=== PATIENT | male | born 1975 | race Two or more races ===

== ENCOUNTER 2016-11-19 18:12 | Emergency (ER) | payer SELFPAY ==
[2016-11-19 18:31] VITALS: BP 139/93; BMI 32.6
[2016-11-19 18:32] LABS: BASOPHILS # (AUTO) 0.1 X10^3/uL (0.0-0.1); BASOPHILS % (AUTO) 0.5 % (0.2-1.0); EOSINOPHILS # (AUTO) 0.2 x10^3/uL (0.0-0.2); EOSINOPHILS % (AUTO) 1.4 % (0.9-2.9); HEMATOCRIT 45.3 % (42.0-54.0); HEMOGLOBIN 15.2 g/dL (13.5-18.0); LYMPHOCYTES # (AUTO) 1.4 X10^3/uL (1.3-2.9); LYMPHOCYTES % (AUTO) 12.7 % (21.0-51.0); MEAN CORPUSCULAR HGB CONC 33.6 g/dL (33.0-35.0); MEAN CORPUSCULAR VOLUME 86.3 fL (80.0-100.0); MEAN PLATELET VOLUME 7.7 fL (7.4-11.0); MONOCYTES # (AUTO) 0.6 x10^3/uL (0.3-0.8); MONOCYTES % (AUTO) 5.1 % (0.0-13.0); NEUTROPHILS # (AUTO) 9.1 x10^3/uL (2.2-4.8); NEUTROPHILS % (AUTO) 80.3 % (42.0-75.0); PLATELET COUNT 303 X10^3/uL (150.0-450.0); RED BLOOD COUNT 5.24 X10^6/uL (4.7-6.0); RED CELL DISTRIBUTION WIDTH 13.6 % (11.6-16.5); WHITE BLOOD COUNT 11.4 X10^3/uL (3.6-10.0)
[2016-11-19 18:33] LABS: BILIRUBIN,URINE NEGATIVE (NEGATIVE); BLOOD/HEMOGLOBIN,URINE NEGATIVE (NEGATIVE); GLUCOSE, URINE NEGATIVE (NEGATIVE); KETONES,URINE NEGATIVE (NEGATIVE); LEUKOCYTE ESTERASE ,URINE NEGATIVE (NEGATIVE); NITRITES,URINE NEGATIVE (NEGATIVE); PROTEIN,URINE NEGATIVE (NEGATIVE); UROBILINOGEN,URINE NORMAL (NORMAL)
--- NOTE | 2016-11-19 18:37 | DR.PSYCH ---
HPI - Time Seen Time seen: 18:35 - PCP Primary Care Physician: ABDULKADIR - HPI Comment HPI Comment: HISTORY BELOW. - Complaint Chief Complaint Doctors Comments: HERE MENTAL HEALTH EVALUATION. RELATIVES CONVERN PATIENTS ANGER . OBTAIN PAER FOR MANDITORY EVALUATION. DENIES FEVER. DID MISS HIS MEDICATION FOR 2 DAYS. STARTED TAKING IT AGAIN. DENIES SUICIDAL OR HOMICIDAL IDEATIONS. DENIES HALLUCINATIONS. PATIENT IN HIS ROOM CALM AND ANSWERING QUESTIONS. Chief Complaint:: PT WAS BROUGHT IN BY [facility]S OFFICE ON A [place] TO APPREHEND. PT'S FAMILY WRITES IN THE AFF[place]AVIT PT HAS BEEN BEING EXTREMELY ANGRY AND WAS ACTING SUICIDAL. PT DENIES ACTING SUICIDAL, BUT STATES HE HAS BEEN UNDER ALOT OF STRESS LATELY AND HE HAS BEEN ANGRY. PT DENIES ANY HOMICIDAL OR SUICIDAL THOUGHTS. PT DOES STATES THAT HE HAS HAD SOME PROBLEMS IN THE PAST WITH DEPRESSION AND ANXIETY THAT HE TAKES MEDICATIONS FOR, BUT THESES DAYS HE HAS ALSO BEEN TRYING TO CONTROL HIMSELF AND HIS ACTIONS A LITTLE BETTER. PT STATES HE TAKES SEVERAL DIFFERENT MEDICATIONS THE ONLY ONE HE WAS ABLE TO NAME WAS LITHIUM. - Reviewed Nurses Notes Review: Yes - Source History Provided: Patient - Mode of Arrival Mode of Arrival: Ambulatory - Timing Onset of Chief Complaint: 11/19/16 Came on: Gradually - Duration Duration: Intermittent Duration: Days - Context Presents With: Anxiety, Depression Ideation: None Plan: None Stressors: Family History of: Anxiety, Bipolar, Depression - Quality Quality: None Hallucinations: None - Severity Severity: Able to care for self - Associated signs and symptoms Intoxification: None PMH - PMH Past Medical History: Yes Past Medical History: Anxiety, Depression Past Surgical History: No - Family History History of Family Medical Conditions: No - Social History Does any household member use tobacco: No Alcohol Use: None Do you use any recreational Drugs:: No Lives With: Family Lives Where: Home - infectious screening In the last 2 months have you had wt loss of >10#?: NO Have you had fever, night sweats or hemotysis?: No Have you traveled outside the country in the last 6 months?: No Isolation: Standard ROS - Review of Systems Constitutional: No Symptoms Reported Eyes: No Symptoms Reported ENTM: No Symptoms Reported Respiratoy: No Symptoms Reported Cardiovascular: No Symptoms Reported Gastrointestinal/Abdominal: No Symptoms Reported Genitourinary: No Symptoms Reported Neurological: No Symptoms Reported Musculoskeletal: No Symptoms Reported Integumentary: No Symptoms Reported Hematologic/Lymphatic: No Symptoms Reported Endocrine: No Symptoms Reported Psychiatric: Anxiety, Depression. negative: Hallucinations, Suicidal All Other Systems: Reviewed and Negative PE - Vitals Vitals: Temperature 98.3 F Pulse Rate 82 Respiratory Rate 20 Blood Pressure 139/93 O2 Sat by Pulse Oximetry 99 - General Limitations: No Limitations General Appearance: Alert - Head Head Exam: Normal Inspection Head Exam Physical: Other (NONE PRESENT) - Eyes Eye exam: Normal Appearance Pupils: Regular, Round: Bilateral, Reactive: Bilateral Sclera/Conjunctival: Normal Inspection: Bilateral - ENT ENT Exam: Normal Exam - Neck Neck Exam: Trachea Midline - Chest Chest Inspection: Symmetric Chest Wall Rise - Respiratory Respiratory Exam: Normal Lung Sounds Bilat Respiratory Exam: Bilateral Clear to Auscultation - Cardiovascular Cardiovascular Exam: Regular Rate, Normal Rhythm, Normal Heart Sounds - Abdominal Exam Abdominal Exam: Normal Bowel Sounds, Soft. negative: Tenderness - Extremities Extremities Exam: Normal Inspection - Back Back Exam: Normal Inspection - Neurologic Neurological Exam: Alert, Oriented X3, CN II-XII Intact, Normal Gait, Reflexes Normal. negative: Motor Sensory Deficit Speech: Fluid Speech Cranial Nerve Exam: EOM Function (II, III, IV, ): Normal, Facial Sensation (V) : Normal, Facial Palsy (VII): Normal, Gag reflex (XI): Normal, Tongue Deviation : Normal Cerebellar Function: Normal Gait Motor Strength - LUE: 5/5 Motor Strength - RUE: 5/5 Motor Strength - LLE: 5/5 Motor Strength - RLE: 5/5 Upper Motor Neuron Exam: Babinski Sign: Normal DTR: achilles tendon (L): 4+, achilles tendon (R): 4+, brachioradialis (L): 4+, brachioradialis (R): 4+, Patellar (L): 4+, patellar (R): 4+ - Psychiatric Psychiatric Exam: Anxious - Skin Skin Exam: Normal Color MDD - Differential Diagnosis Differential diagnosis: Anxiety, Bipolar disorder, Depression Course - Treatment Treatment: SEE ORDERS. PATIENT MEDICALLY CLEAR. - Consultation Consultation Comments: MENTAL HEALTH INPATIENT AUDITOR CAME TO ED AND EVALUATED PATIENT. HAVE OUT PATIENT FOLLOW UP ARRANGE. - Education/Counseling Education/Counseling: Patient, Education Educated On: Diagnosis, Needs for Follow Up ROR - Labs Reviewed Laboratory Results Reviewed?: Yes Result Diagrams: 11/19/16 18:23 11/19/16 18:23 Laboratory: WBC 11.4 X10^3/uL (3.6-10.0) H 11/19/16 18:23 RBC 5.24 X10^6/uL (4.7-6.0) 11/19/16 18:23 Hgb 15.2 g/dL (13.5-18.0) 11/19/16 18: Hct 45.3 % (42.0-54.0) 11/19/16 18:23 MCV 86.3 fL (80.0-100.0) 11/19/16 18:23 MCH 29.0 pg (27.0-34.0) 11/19/16 18: MCHC 33.6 g/dL (33.0-35.0) 11/19/16 18: RDW 13.6 % (11.6-16.5) 11/19/16 18: Plt Count 303 X10^3/uL (150.0-450.0) 11/19/16 18: MPV 7.7 fL (7.4-11.0) 11/19/16 18:23 Neut % 80.3 % (42.0-75.0) H 11/19/16 18: Lymph % 12.7 % (21.0-51.0) L 11/19/16 18:23 [place] % 5.1 % (0.0-13.0) 11/19/16 18:23 Eos % 1.4 % (0.9-2.9) 11/19/16 18: Baso % 0.5 % (0.2-1.0) 11/19/16 18:23 Neut # 9.1 x10^3/uL (2.2-4.8) H 11/19/16 18:23 Lymph # 1.4 X10^3/uL (1.3-2.9) 11/19/16 18:23 [place] # 0.6 x10^3/uL (0.3-0.8) 11/19/16 18:23 Eos # 0.2 x10^3/uL (0.0-0.2) 11/19/16 18: Baso # 0.1 X10^3/uL (0.0-0.1) 11/19/16 18:23 Absolute Nucleated RBC 0.0 /100WBC 11/19/16 18:23 Sodium 143 mmol/L (136-145) 11/19/16 18:23 Corrected Sodium TNP 11/19/16 18:23 Potassium 4.0 mmol/L (3.5-5.1) 11/19/16 18:23 Chloride 103 mmol/L (98-107) 11/19/16 18:23 Carbon Dioxide 26.4 mmol/L (21-32) 11/19/16 18:23 BUN 13 mg/dL (7-18) 11/19/16 18:23 Creatinine 1.08 mg/dL (0.70-1.30) 11/19/16 18:23 Est GFR (MDRD) Af Amer > 60 (>60) 11/19/16 18:23 Est GFR (MDRD) Non-Af > 60 (>60) 11/19/16 18:23 Glucose 99 mg/dL (65-99) 11/19/16 18:23 Calcium 9.5 mg/dL (8.5-10.1) 11/19/16 18:23 Corrected Calcium TNP 11/19/16 18:23 Total Bilirubin 1.30 mg/dL (0.2-1.0) H 11/19/16 18:23 AST 28 Units/L (15-37) 11/19/16 18:23 ALT 34 Units/L (12-78) 11/19/16 18:23 Alkaline Phosphatase 74 Units/L (46-116) 11/19/16 18:23 Total Protein 9.0 g/dL (6.4-8.2) H 11/19/16 18:23 Albumin 4.6 g/dL (3.4-5.0) 11/19/16 18:23 Globulin 4.4 g/dL (2.5-4.5) 11/19/16 18:23 Albumin/Globulin Ratio 1.0 Ratio (1.1-2.1) L 11/19/16 18:23 Specimen Type Clean catch urine 11/19/16 18:27 Urine Color Yellow (YELLOW) 11/19/16 18:27 Urine Appearance Clear (CLEAR) 11/19/16 18:27 Urine pH 6.0 (5.0 - 8.0) 11/19/16 18:27 Ur Specific [place] 1.020 (1.000-1.030) 11/19/16 18:27 Urine Protein Negative (NEGATIVE) 11/19/16 18:27 Urine Glucose (UA) Negative (NEGATIVE) 11/19/16 18:27 Urine Ketones Negative (NEGATIVE) 11/19/16 18:27 Urine Occult Blood Negative (NEGATIVE) 11/19/16 18:27 Urine Nitrite Negative (NEGATIVE) 11/19/16 18:27 Urine Bilirubin Negative (NEGATIVE) 11/19/16 18:27 Urine Urobilinogen Normal (NORMAL) 11/19/16 18:27 Ur Leukocyte Esterase Negative (NEGATIVE) 11/19/16 18:27 Urine RBC None seen /HPF (NEGATIVE) 11/19/16 18:27 Urine WBC 0-1 /HPF (NEGATIVE) 11/19/16 18:27 Ur Squamous Epith Cells Rare /HPF (NEGATIVE) 11/19/16 18:27 Amorphous Sediment Trace /HPF (NEGATIVE) 11/19/16 18:27 Urine Bacteria Trace /HPF (NEGATIVE) 11/19/16 18:27 Urine Mucus Moderate /HPF (NEGATIVE) 11/19/16 18:27 Ur Culture Indicated? No/not indicated 11/19/16 18:27 Salicylates < 2.8 mg/dL (2.8-20) L 11/19/16 18:23 Urine Opiates Screen Negative (NEG=<300) 11/19/16 18:27 Urine Methadone Screen Negative (NEG=<300) 11/19/16 18:27 Acetaminophen 0.0 ug/mL (10-30) L 11/19/16 18:23 Ur Barbiturates Screen Negative (NEG=<200) 11/19/16 18:27 Ur Phencyclidine Scrn Negative (NEG=<25) 11/19/16 18:27 Ur Amphetamines Screen Negative (NEG=<1000) 11/19/16 18:27 U Benzodiazepines Scrn Positive (NEG=<200) 11/19/16 18:27 Urine Cocaine Screen Negative (NEG=<300) 11/19/16 18:27 U Marijuana (THC) Screen Negative (NEG=<50) 11/19/16 18:27 Ethyl Alcohol mg/dL < 3 mg/dL (0-19.9) 11/19/16 18:23 - EKG Rhythm: NSR (EKG NOTED) - Diagnosis Discharge Problem: Anxiety, Difficulty controlling anger Depression Qualifiers: Depression Type: unspecified Qualified Code(s): F32.9 - Major depressive disorder, single episode, unspecified - Discharge Plan Disposition: 01 HOME, SELF-CARE Condition: Stable - Follow ups/Referrals Follow ups/Referrals: NFD,None [Primary Care Provider] - 11/20/16 - Instructions Instructions: Depression, Adult, [id number], Anger Management, Adjustment Disorder, Generalized Anxiety Disorder Additional Instructions: return to ed if worse. follow up with dejon hays [place] on wednesday11/24/2016.
[2016-11-19 18:44] LABS: AMORPHOUS SEDIMENT,UR TRACE /HPF (NEGATIVE); APPEARANCE,URINE CLEAR (CLEAR); BACTERIA,URINE TRACE /HPF (NEGATIVE); COLOR,URINE YELLOW (YELLOW); MUCUS,URINE MODERATE /HPF (NEGATIVE); RBC,URINE NONE SEEN /HPF (NEGATIVE); SQUAMOUS EPITHELIAL CELL,UR RARE /HPF (NEGATIVE)
[2016-11-19 18:45] LABS: ALANINE AMINOTRANSFERASE 34 Units/L (12-78); ALBUMIN 4.6 g/dL (3.4-5.0); ALKALINE PHOSPHATASE 74 Units/L (46-116); ASPARTATE AMINO TRANSFERASE 28 Units/L (15-37); BLOOD UREA NITROGEN 13 mg/dL (7-18); CALCIUM 9.5 mg/dL (8.5-10.1); CARBON DIOXIDE 26.4 mmol/L (21-32); CHLORIDE 103 mmol/L (98-107); CREATININE 1.08 mg/dL (0.70-1.30); GLUCOSE 99 mg/dL (65-99); SODIUM 143 mmol/L (136-145); eGFR BLACK RACES > 60 (>60); eGFR NON BLACK RACES > 60 (>60)
[2016-11-19 18:46] LABS: BLOOD ALCOHOL < 3 mg/dL (0-19.9)
[2016-11-19 18:47] LABS: SALICYLATE < 2.8 mg/dL (2.8-20)
== END 2016-11-19 21:25 | disposition home or self-care (01) ==
LOC: ER 18:22
DX: R45.4 Irritability and anger (principal); F41.8 Other specified anxiety disorders; F32.89 Other specified depressive episodes
CPT/HCPCS: 36415; 80053; 80307; 80320; 81001; 85025; 93005; 93010; 99283; 99285; G0434; G6038; G6039; G6040